=== PATIENT | male | born 1950 | race Caucasian/White ===

== ENCOUNTER 2018-10-16 10:59 | Day surgery (SDC) | payer OTHER, SELFPAY ==
[2018-09-30 09:32] VITALS: BMI 21.2
[2018-10-16] VITALS (7 sets, daily range): BP systolic 121–133; BP diastolic 71–83; PULSE 67–93; RESP 13–22; TEMP 36.2–36.4; O2SAT 97–99; BMI 20.1
[2018-10-16] MEDS: LACTATED RINGERS 1,000 ML 100 ML IV (11:51)
[2018-10-16] MEDS: MIDAZOLAM 2 MG/2 ML VIAL 1 MG IV (13:37)
--- NOTE | 2018-10-16 13:52 | PM.PREOP ---
Pre-operative Note Interval Note History & Physical reviewed/Exam performed by Physician: Yes Changes to H&P: No
[2018-10-16] MEDS: CEFAZOLIN 2 GM/100 ML FROZ.PIGGY IV (14:10)
--- NOTE | 2018-10-16 14:34 | SUR.OPER ---
Supine on padded OR bed, head on pillow, arms secured on padded arm boards at <90 degrees abduction, legs uncrossed, safety belt at thigh, tape over blanket over lower legs.
[2018-10-16] MEDS: BUPIVACAINE 0.5% W/ EPI (PF) VIAL 30 ML INJ (14:35)
[2018-10-16] MEDS: OXYCODONE/ACETAMINOPHEN 5/325 TABLET 1 TAB PO (15:30)
--- NOTE | 2018-10-16 15:33 | PM.OP.1 ---
Operative Date/Time/Diagnoses Date of procedure: 10/16/18 Time of procedure: 15:00 Pre-op diagnosis: Incisional hernia at the umbilicus Post-op diagnosis: same Procedure & Clinicians Procedure: Repair of hernia Same procedure as scheduled: Yes Indications: Symptomatic hernia Surgeon: Devan Carvalho Click Yes if Unassisted: Yes Anesthesia Type: General Operative Notes Findings: Small defect. Closed primarily. Closure Type: primary Specimen(s): none sent Estimated Blood Loss (mL): 5 Procedure in detail: The patient is placed supine on the operating room table underwent general in LMA anesthesia. He was prepped and draped in the usual fashion. A curvilinear incision was made through old scar just to the left of the umbilicus. It was carried down under direct vision to the level of the fascia. Hernia sac was identified and opened. Its contents which consisted of a small amount of omentum was reduced. The fascial edge was cleared. The fascia was closed with interrupted 1. Ethibond. The subcu was closed with interrupted 3 0 Vicryl. The skin was those with 5 0 Dilaudid as the tissues were otherwise not really be very good for subcuticular closure. Patient was awakened extubated and taken recovery area in good condition. Complications: none Condition: stable Disposition: PACU
== END 2018-10-16 16:26 | disposition home or self-care (01) ==
PROVIDERS: PCP Family Medicine; Visit Provider Specialist
PROC: (CPT 49560; principal; 2018-10-16 12:45)
DX: K43.2 Incisional hernia without obstruction or gangrene (principal); E11.9 Type 2 diabetes mellitus without complications; E78.00 Pure hypercholesterolemia, unspecified; Z79.84 Long term (current) use of oral hypoglycemic drugs
CPT/HCPCS: 49560; J0690; J2250; J2405; J2704; J3010

== ENCOUNTER → 2019-01-19 07:38 | Outpatient (CLI) | payer OTHER, SELFPAY ==
[2019-01-19 08:50] LABS: Add Manual Diff / Slide Review NO; Basophils Absolute Auto 100 /uL (0-100); Basophils Percent Auto 0.8 % (0-2); Eosinophils Absolute Auto 400 /uL (0-450); Eosinophils Percent Auto 3.5 % (2-4); Hematocrit 42.3 % (41-53); Hemoglobin 13.7 g/dL (13.5-17.5); Lymphocytes Absolute Auto 3100 /uL (1100-4500); Lymphocytes Percent Auto 29.9 % (25-40); Mean Corpuscular HGB Conc 32.5 % (30-36); Mean Corpuscular Hemoglobin 29.2 PG (26-34); Mean Corpuscular Volume 89.9 fL (80-100); Monocytes Absolute Auto 1500 /uL (0-900); Monocytes Percent Auto 14.1 % (3-14); Neutrophils Absolute Auto 5400 /uL (1500-7000); Neutrophils Percent Auto 51.7 % (50-75); Platelet Count 250 X10^3/uL (150-400); Red Cell Distribution Width 14.5 % (11.6-14.8); White Blood Cell Count 10.5 X10^3/uL (4.5-11.0)
[2019-01-19 09:01] LABS: Hemoglobin A1C% w Est Avg Glu 5.7 % (4.0-6.0)
[2019-01-19 09:02] LABS: Alanine Aminotransferase 16 IU/L (21-72); Albumin 4.2 g/dL (3.5-5.0); Albumin Globulin Ratio 1.4 (1.0-2.8); Alkaline Phosphatase 89 U/L (38-126); Aspartate Aminotransferase 33 IU/L (17-59); BUN Creatinine Ratio 31.7 (6-22); Bilirubin Total 0.6 mg/dL (0.2-1.3); Blood Urea Nitrogen 19 mg/dL (9-20); Calcium 9.2 mg/dL (8.4-10.2); Carbon Dioxide 29 mmol/L (22-32); Chloride 104 mmol/L (98-107); Cholesterol 142 mg/dL (140-199); Estimated Glomerular Filt Rate > 60.0 mL/min (>60); Glucose 98 mg/dL (80-110); HDL Cholesterol 45 mg/dL (40-60); HEMOLYSIS < 15 (0-50); LDL Cholesterol Calculated 71 mg/dL (<100); Sodium 142 mmol/L (137-145); Total Protein 7.2 g/dL (6.3-8.2); Triglycerides 131 mg/dL (35-150)
[2019-01-19 09:42] LABS: Thyroid Stimulating Hormone 2.81 uIU/mL (0.47-4.68)
[2019-01-19 11:00] LABS: Creatinine Urine Random 16.4 mg/dL
[2019-01-19 11:09] LABS: Microalbumi Creatinin Ratio Ur 36.5 ug/mg CR (<30); Microalbumin Urine Random < 0.6 mg/dL (0-1.6)
== END ==
PROVIDERS: PCP Family Medicine; Visit Provider Family Medicine
DX: R63.4 Abnormal weight loss (principal); E11.9 Type 2 diabetes mellitus without complications; E78.00 Pure hypercholesterolemia, unspecified
CPT/HCPCS: 36415; 80053; 80061; 82043; 82570; 83036; 84443; 85025